=== PATIENT | female | born 1940 | race Caucasian/White ===

== ENCOUNTER 2016-06-23 11:46 | Observation (INO) | payer OTHER ==
[2016-06-23] MEDS ORDERED: Ketorolac INJ* 30 MG/ML 1 ML VIAL IV ONE (12:41)
[2016-06-23] MEDS ORDERED: NS 0.9% 1000 ML* 1,000 ML IV ONE (12:41)
[2016-06-23 13:06] LABS: Hematocrit 45 % (35-47); Hemoglobin 15.4 g/dl (12.0-16.0); Mean Corpuscular HGB Conc 34 g/dl (31-36); Mean Corpuscular Hemoglobin 31 pg (27-31); Mean Corpuscular Volume 91 fL (80-97); Mean Platelet Volume 8 um3 (7.4-10.4); Red Blood Count 4.99 10^6/ul (4.0-5.4); Red Cell Distribution Width 14 % (10.5-15); White Blood Count 7.1 10^3/ul (3.5-10.8)
[2016-06-23 13:22] LABS: BUN/Creatinine Ratio 16.7 (8-20); C Reactive Protein 1.47 mg/L (< 5.00); Calcium 9.3 mg/dL (8.6-10.3); EGFR African American 68.1 (>60); Globulin 3.5 g/dL (2-4); Potassium 3.3 mmol/L (3.5-5.0); Total Bilirubin 0.9 mg/dL (0.2-1.0); Total Protein 7.5 g/dL (6.4-8.9)
[2016-06-23] MEDS ORDERED: Morphine INJ* 4 MG/ML 1 ML SYRINGE IV ONE ×2 (13:37→15:27)
--- NOTE | 2016-06-23 13:44 | RAD ---
INDICATION: 2 days RIGHT flank pain. COMPARISON: No relevant prior exams available on the [facility] for comparison. TECHNIQUE: Multidetector CT images were obtained from the lung bases to the ischial tuberosities. Evaluation of the viscera is limited without IV contrast. Multiplanar reformation. REPORT: Mild prominence of interstitial markings at the basilar segments of the RIGHT greater than LEFT lower lobes without volume loss suspicious for mild interstitial edema or fibrosis. Coronary artery calcifications. Negative for cardiomegaly. Unremarkable unenhanced liver. Innumerable calcified gallstones without additional CT abnormality of the gallbladder. Negative for biliary dilatation. No stones visualized along the course of the nondilated common bile duct. Unremarkable unenhanced pancreas and spleen. Negative for CT abnormality of the upper GI or small bowel. The appendix is not visualized. Negative for inflammatory change at the RIGHT lower quadrant. Moderately severe colonic diverticulosis most prominent at the proximal sigmoid colon without findings of acute diverticulitis. Negative for ascites, free air, or significant hernias. Mild prominence of the bilateral adrenal limbs most consistent with hyperplasia. Subcentimeter cortical cyst mid pole LEFT kidney. No suspicious focal renal lesions, conspicuous stones, or hydronephrosis. Unremarkable nondilated ureters and largely decompressed urinary bladder. Subserosal solitary partially calcified versus conglomerate of multiple uterine fibroids along the RIGHT uterine margin measuring up to 5.1 x 4.7 cm in the axial plane. Unremarkable bilateral ovaries. Negative for lymphadenopathy. Atherosclerotic calcification of the abdominal aorta and iliac arteries. 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 Physiologic distention of the IVC. Negative for suspicious focal osseous lesions. Lumbar sacral spine degenerative spondylosis and facet joint osteoarthritis IMPRESSION: 1. Suggestion of mild interstitial edema versus interstitial fibrosis at the lung bases. 2. Coronary artery calcifications. 3. Cholelithiasis without additional CT abnormality of the gallbladder. Negative for biliary dilatation. 4. The appendix is not visualized. Moderately severe colonic diverticulosis without findings of acute diverticulitis. 5. Bilateral adrenal hyperplasia. 6. Negative for urolithiasis or hydronephrosis. 7. Subserosal solitary partially calcified versus conglomerate of multiple uterine fibroids along the RIGHT uterine margin measuring up to 5.1 x 4.7 cm in the axial plane. 8. 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
[2016-06-23] MEDS ORDERED: Potassium Chlor TAB* 20 MEQ TAB.ER PO ONE ×3 (15:03→16:52)
[2016-06-23 15:09] LABS: Urine Bilirubin Negative (Negative); Urine Glucose Negative (Negative); Urine Nitrite Negative (Negative)
[2016-06-23] MEDS ORDERED: Orphenadrine Citrate IV* 30 MG/ML 2 ML VIAL IV ONE (16:06)
[2016-06-23] MEDS ORDERED: Orphenadrine Citrate IV* 30 MG/ML 2 ML VIAL ONE (16:08)
[2016-06-23] MEDS ORDERED: Dexamethasone IV* 4 MG/ML 1 ML (4 MG) IV SLOW PU ONE (16:40)
[2016-06-23] MEDS ORDERED: Morphine INJ* 2 MG/ML 1 ML SYRINGE IV PRN (17:36)
[2016-06-23] MEDS ORDERED: Cyclobenzaprine TAB* 10 MG PO PRN (17:38)
[2016-06-23] MEDS ORDERED: Diazepam TAB(*) 5 MG PO PRN (17:38)
[2016-06-23] MEDS ORDERED: oxyCODONE TAB* 5 MG TAB PO PRN (17:39)
[2016-06-23] MEDS ORDERED: Enoxaparin(*) 40 MG/0.4 ML SYR SUBCUT SCH (18:00)
--- NOTE | 2016-06-23 18:01 | ED ---
Abbie Beltran Matthew, scribed for Kristopher Agarwal MD on 06/23/16 at 1244 . Abdominal Pain/Female - HPI Summary HPI Summary: A 76 y/o female presents to the ED with right flank pain since 2 days ago. The pain is rated 10/10 in severity and beginning to radiate down the right leg as well. The patient denies fever, chills, nausea, and vomiting. The patient went to on 06/21/16 and was diagnosed with an infection and possible kidney stone. No Hx of kidney stones. PMHx of HTN. SHx appendectomy. FHx of CAD, CA, Nathan' s disease. The patient recently drove from [place] to [facility]. - History of Current Complaint Chief Complaint: EDFlankPain Stated Complaint: FLANK PAIN Time Seen by Provider: 06/23/16 12:28 Hx Obtained From: Patient ?: No Onset/Duration: Lasting Days, Still Present Timing: Constant Severity Initially: Moderate Severity Currently: Moderate Pain Intensity: 10 Pain Scale Used: 0-10 Numeric Location: Flank - Rt Radiates: Yes Radiates to: Other - down the right leg Associated Signs and Symptoms: Negative: Fever, Nausea, Vomiting Allergies/Adverse Reactions: Allergies Allergy/AdvReac Type Severity Reaction Status Date / Time No Known Allergies Allergy Verified 06/23/16 11:46 Home Medications: Home Medications Aspirin [Aspirin 81 MG TAB] 81 mg PO DAILY 06/23/16 [History Confirmed 06/23/16] Atenolol TAB* [Tenormin TAB* 50 MG] 50 mg PO DAILY 06/23/16 [History Confirmed 06/23/16] Nabumetone TAB* [Relafen TAB*] 500 mg PO BID PRN 06/23/16 [History Confirmed ] Sulfamethox/Trimethoprim DS* [Bactrim DS 800/160 TAB*] 1 tab PO BID 06/23/16 [ History Confirmed 06/23/16] PMH/Surg Hx/FS Hx/Imm Hx Cardiovascular History: Reports: Hx Hypertension History: Denies: Hx Kidney Stones - Surgical History Surgery Procedure, Year, and Place: appendectomy Infectious Disease History: No Infectious Disease History: Denies: Traveled Outside the [place] in Last 30 Days - Family History Family History: FHx of CAD, CA, Nathan's disease - Social History Alcohol Use: Occasionally Hx Substance Use: No Substance Use Type: Reports: None Hx Tobacco Use: No Smoking Status (MU): Never Smoked Tobacco Review of Systems Constitutional: Negative Negative: Fever, Chills Eyes: Negative ENT: Negative Cardiovascular: Negative Respiratory: Negative Positive: Abdominal Pain - RT Flank Pain. Negative: Vomiting, Nausea Genitourinary: Negative Musculoskeletal: Negative Skin: Negative Neurological: Negative Psychological: Normal All Other Systems Reviewed And Are Negative: Yes Physical Exam - Summary Physical Exam Summary: VITAL SIGNS: Reviewed. GENERAL: Patient is an obese female who is lying comfortable in the stretcher. Patient is not in any acute respiratory distress. HEAD AND FACE: Normocephalic and atraumatic. EYES: PERRLA, EOMI x 2, No injected conjunctiva. EARS: Hearing grossly intact. Ear canals and tympanic membranes are WNL. MOUTH: Oropharynx within normal limits. NECK: Supple, trachea is midline, no adenopathy, no JVD. CHEST: Symmetric, no tenderness at palpation LUNGS: Clear to auscultation bilaterally. No wheezing or crackles. CVS: RRR,, S1 and S2 present, no murmurs or gallops appreciated. ABDOMEN: Soft, non-tender. No signs of distention. Positive bowel sounds. No rebound no guarding, and no masses palpated. No abdominal bruit or pulsations. Positive Right CVAT's EXTREMITIES: FROM in all major joints, no edema, no cyanosis or clubbing. NEURO: Alert and oriented x 3. No acute neurological deficits. Speech is normal. SKIN: Dry and warm Triage Information Reviewed: Yes Vital Signs On Initial Exam: Initial Vitals Temp Pulse Resp BP Pulse Ox 99 F 81 16 152/96 97 06/23/16 11:47 06/23/16 11:47 06/23/16 11:47 06/23/16 11:47 06/23/16 11:47 Vital Signs Reviewed: Yes Diagnostics - Vital Signs Vital Signs Temp Pulse Resp BP Pulse Ox 06/23/16 11:47 99 F 81 16 152/96 97 - Laboratory Lab Results: Lab Results 06/23/16 06/23/16 Range/Units 13:00 13:00 WBC 7.1 (3.5-10.8) 10^3/ul RBC 4.99 (4.0-5.4) 10^6/ul Hgb 15.4 (12.0-16.0) g/dl Hct 45 (35-47) % MCV 91 (80-97) fL MCH 31 (27-31) pg MCHC 34 (31-36) g/dl RDW 14 (10.5-15) % Plt Count 283 (150-450) 10^3/ul MPV 8 (7.4-10.4) um3 Neut % (Auto) 65.5 (38-83) % Lymph % (Auto) 21.9 L (25-47) % [place] % (Auto) 11.2 H (1-9) % Eos % (Auto) 0.8 (0-6) % Baso % (Auto) 0.6 (0-2) % Absolute Neuts (auto) 4.6 (1.5-7.7) 10^3/ul Absolute Lymphs (auto) 1.6 (1.0-4.8) 10^3/ul Absolute Monos (auto) 0.8 (0-0.8) 10^3/ul Absolute Eos (auto) 0.1 (0-0.6) 10^3/ul Absolute Basos (auto) 0 (0-0.2) 10^3/ul Absolute Nucleated RBC 0 10^3/ul Nucleated RBC % 0 Sodium 138 (133-145) mmol/L Potassium 3.3 L (3.5-5.0) mmol/L Chloride 107 (101-111) mmol/L Carbon Dioxide 21 L (22-32) mmol/L Anion Gap 10 (2-11) mmol/L BUN 17 (6-24) mg/dL Creatinine 1.02 H (0.51-0.95) mg/dL Est GFR ( Amer) 68.1 (>60) Est GFR (Non-Af Amer) 53.0 (>60) BUN/Creatinine Ratio 16.7 (8-20) Glucose 104 H (70-100) mg/dL Calcium 9.3 (8.6-10.3) mg/dL Total Bilirubin 0.90 (0.2-1.0) mg/dL AST 26 (13-39) U/L ALT 32 (7-52) U/L Alkaline Phosphatase 48 (34-104) U/L C-Reactive Protein 1.47 (< 5.00) mg/L Total Protein 7.5 (6.4-8.9) g/dL Albumin 4.0 (3.2-5.2) g/dL Globulin 3.5 (2-4) g/dL Albumin/Globulin Ratio 1.1 (1-3) Amylase 65 (29-103) U/L Lipase 32 (11.0-82.0) U/L Result Diagrams: 06/23/16 13:00 06/23/16 13:00 Lab Statement: Any lab studies that have been ordered have been reviewed, and results considered in the medical decision making process. - CT CT A/P CT Interpretation: Positive (See Comments) - IMPRESSION: 1. Suggestion of mild interstitial edema versus interstitial fibrosis at the lung bases. 2. Coronary artery calcifications. 3. Cholelithiasis without additional CT abnormality of the gallbladder. Negative for biliary dilatation. 4. The appendix is not visualized. Moderately severe colonic diverticulosis without findings of acute diverticulitis. 5. Bilateral adrenal hyperplasia. 6. Negative for urolithiasis or hydronephrosis. 7. Subserosal solitary partially calcified versus conglomerate of multiple uterine fibroids along the RIGHT uterine margin measuring up to 5.1 x 4.7 cm in the axial plane. 8. 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 CT Interpretation Completed By: Radiologist - EKG 13:19 Cardiac Rate: NL - 62 bpm EKG Rhythm: Sinus Rhythm EKG Interpretation: No ST elevation Abdominal Pain Fem Course/Dx - Course Course Of Treatment: A 76 y/o female presents to the ED with right flank pain since 2 days ago. The pain is rated 10/10 in severity and beginning to radiate down the right leg as well. The patient denies fever, chills, nausea, and vomiting. The patient went to on 06/21/16 and was diagnosed with an infection and possible kidney stone. No Hx of kidney stones. PMHx of HTN. SHx appendectomy. FHx of CAD, CA, Nathan's disease. The patient recently drove from [place] to [facility]. Blood work WNL expect potassium of 3.3, creatinine of 1.02 and glucose 104 . Urinalysis is negative. CT shows 1. Suggestion of mild interstitial edema versus interstitial fibrosis at the lung bases. 2. Coronary artery calcifications. 3. Cholelithiasis without additional CT abnormality of the gallbladder. Negative for biliary dilatation. 4. The appendix is not visualized. Moderately severe colonic diverticulosis without findings of acute diverticulitis. 5. Bilateral adrenal hyperplasia. 6. Negative for urolithiasis or hydronephrosis. 7. Subserosal solitary partially calcified versus conglomerate of multiple uterine fibroids along the RIGHT uterine margin measuring up to 5.1 x 4.7 cm in the axial plane. 8. 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 Discussed the CT with Dr. Francois and he reports that the AAAs are minimal and she only needs outpatient follow-up. I gave the patient Toradol, morphine, decadron, and Norflex. since I believe the pain is more musculoskeletal. She reported that she felt better, but when she tried to ambulate to use the restroom and was unable to secondary to increased pain. Therefore, at this time, I discussed my findings with Dr. [facility] who accepted the patient for admission. The patient will be observed and given pain medication for pain control. I dont know believe the pain is coming from the AAA, because it is very small and she doesnt have any other intraabdominal pathology. The patient is A&Ox3 and hemodynamically stable - Diagnoses Differential Diagnosis: Positive: Diverticulitis, Renal Colic, Urinary Tract Infection Provider Diagnoses: Right flank pain, Lower back pain, AAA (abdominal aortic aneurysm) - Provider Notifications Discussed Care Of Patient With: Dr. Gilmore (Radiologist) at 14:17 -- Consulted. Dr. [facility] (Hospitalist) at 16:48 -- Notified of paitent's history and will admit the patient into his care. Discharge - Discharge Plan Condition: Stable Disposition: ADMITTED TO [facility] Referrals: Non Staff,Doctor [Primary Care Provider] - The documentation as recorded by the Abbie sarmiento Matthew accurately reflects the service I personally performed and the decisions made by me, Kristopher Agarwal MD.
[2016-06-23] MEDS: Gabapentin CAP(*) 300 MG PO SCH ×2 (19:03→21:07)
[2016-06-23] MEDS: Lidocaine PATCH 5%* 1 PATCH TRANSDERM SCH (19:05)
[2016-06-23] MEDS ORDERED: Sulfamethox/Trimethoprim DS 800/160* TAB PO SCH (21:00)
[2016-06-23] MEDS ORDERED: Lidocaine Patch REMOVE* 1 NOTE MISC SCH (21:00)
[2016-06-23] MEDS: Acetaminophen TAB* 325 MG PO SCH (21:06)
--- NOTE | 2016-06-23 21:53 | HP ---
HISTORY AND PHYSICAL: DATE OF ADMISSION: 06/23/16 PRIMARY CARE PHYSICIAN: The patient's PCP is in [place]. CHIEF COMPLAINT: Low back pain. HISTORY OF PRESENT ILLNESS: Ms. Gatica is a 76-year-old female with past medical history of hypertension, arthritis, who presents to the hospital with worsening back pain. The patient states she has had some element of back pain for years, mostly located in the right lower back. She also needs to stop and sit down while ambulating due to the pain. She has seen her PCP at home for this recently and was prescribed nabumetone. She also reports having an MRI within the past few months that she states showed "arthritis." She states she was not ever told that she had any spinal stenosis. The patient and her have been driving cross country for the past week or so to visit their grandsons here in [place]; they live in [place]. She states that around Tuesday or Tuesday, the pain seemed to worsen. This was around the time they were in [place], [place]. She said over the past days, it has limited her mobility. She feels like she has a lot of trouble getting around. She states pain is located in the right mid back that radiates down the leg. Denies any incontinence. She was seen at urgent care recently and prescribed Bactrim, because it was felt that this may be a UTI or a kidney stone. She states they told her the urine possibly looked mildly infected. She had been complaining of some increased urinary frequency and maybe some mild dysuria. Denies any fever or chills. No hematuria. She presented to the emergency room due to these progressive symptoms. She received multiple rounds of IV narcotics , NSAIDs, muscle relaxants, and steroids in the emergency department, but continues to have significant pain. Hospitalist service was consulted for admission. PAST MEDICAL HISTORY: Hypertension, arthritis, chronic back pain. PAST SURGICAL HISTORY: Appendectomy, tonsillectomy, ankle surgery, recent colonoscopy with large polyp removal that was benign. HOME MEDICATIONS: 1. Atenolol 50 mg by mouth daily. 2. Bactrim double strength 1 tablet by mouth 2 times daily. 3. Nabumetone 1 tablet by mouth 2 times daily as needed for pain. 4. Aspirin 81 mg by mouth daily. ALLERGIES: The patient reports no known drug allergies. FAMILY HISTORY: Significant for father with CAD and CABG; mother, lung cancer; sister, kidney cancer. SOCIAL HISTORY: Denies any history of tobacco use. Very occasional alcohol use. Denies any illicit drug use. REVIEW OF SYSTEMS: A 12-point review of systems is negative except for that as noted in the HPI. PHYSICAL EXAMINATION GENERAL: The patient is an elderly female, lying in bed, in intermittent distress. VITAL SIGNS: On admission, temperature 99, heart rate of 81, respiratory rate 16, O2 saturation 97% on room air, blood pressure 152/96. HEENT: Head: Normocephalic, atraumatic. Eyes: Pupils equal, round, and reactive to light and accommodation. Anicteric sclerae. ENT: Moist mucous membranes. Normal oropharynx. No cervical adenopathy. LUNGS: Clear to auscultation bilaterally. No wheezes, rales, or rhonchi. CARDIOVASCULAR: Regular rate and rhythm. S1, S2 present. No murmurs, gallops , or rubs. ABDOMEN: Obese, soft, nondistended. Some mild tenderness to palpation in the right lower quadrant. EXTREMITIES: No cyanosis, clubbing, or edema. NEURO: The patient is alert and oriented x3. No focal neurological deficits. BACK: Tender to palpation in the right lumbar paraspinal area. Positive right straight leg raise test. SKIN: Warm, dry, and well perfused. DIAGNOSTIC STUDIES/LAB DATA: White blood cell count of 7.1, hematocrit of 45, platelets of 283. Sodium 138, potassium 3.3, chloride of 107, carbon dioxide 21 , BUN of 17, creatinine 1.02, glucose of 104. LFTs within normal limits. CRP of 1.47. Amylase is 65, lipase is 32. Urinalysis benign. CT abdomen and pelvis shows mild interstitial edema versus interstitial fibrosis at the lung bases, coronary artery calcification, cholelithiasis without additional CT abnormality of the gallbladder, negative for biliary dilatation, the appendix is not visualized, moderately severe colonic diverticulosis without findings of acute diverticulitis, bilateral adrenal hyperplasia, negative for urolithiasis or hydronephrosis, subserosal solitary partially calcified versus conglomerate of multiple uterine fibroids, borderline fusiform aneurysm of the infrarenal abdominal aorta. EKG: Personally reviewed shows normal sinus rhythm. No acute ischemic changes. ASSESSMENT AND PLAN: Intractable back pain in a 76-year-old female with past medical history of hypertension, arthritis, and chronic back pain. 1. Intractable back pain. It seems likely this may be an exacerbation of her arthritis or possibly spinal stenosis, probably exacerbated by her cross country car trip. The patient received a number of medications in the emergency department including Norflex, morphine, Toradol, and Decadron. We will hold off on any additional steroids for now. We will start the patient on [id number] Tylenol as well as gabapentin 300 mg 3 times daily. We will write the patient for a Lidoderm patch, Flexeril, and Valium p.r.n., oxycodone p.r.n. for pain. We will order PT eval. 2. Hypertension. Atenolol 50 mg by mouth daily. 3. Questionable UTI - reports she had mild symptoms and 5 star was not convinced about infection but treated due to back pain, UA clear now, will hold Bactrim 4. DVT prophylaxis. Lovenox subcu. 5. Code status. The patient is a full code. TIME SPENT: Total time spent on this admission 40 minutes with over half the time spent [id number] with the patient in counseling and coordinating care. [id number]/[facility] [place] #: [id number] TAYO
[2016-06-23] MEDS ORDERED: Aspirin EC Low Dose* 81 MG TAB.EC PO SCH (22:00)
[2016-06-23] MEDS ORDERED: Atenolol TAB* 50 MG PO SCH (22:00)
[2016-06-24 06:39] LABS: BUN/Creatinine Ratio 20.9 (8-20); Calcium 9.2 mg/dL (8.6-10.3); EGFR African American 77.7 (>60); EGFR Non-African American 60.4 (>60); Potassium 4.2 mmol/L (3.5-5.0)
[2016-06-24 07:32] VITALS: BP 119/90
[2016-06-24] MEDS: Lidocaine PATCH 5%* 1 PATCH TRANSDERM SCH (08:16)
[2016-06-24] MEDS: Gabapentin CAP(*) 300 MG PO SCH (08:17)
[2016-06-24] MEDS: Acetaminophen TAB* 325 MG PO SCH (08:18)
--- NOTE | 2016-06-28 07:42 | PN ---
Hospitalist Progress Note . HOSPITALIST DISCHARGE NOTE: See dc instructions and summary by me. Patient stable for dc dc instructions reviewed with the patient at the bedside. DC patient home today.
--- NOTE | 2016-06-28 11:25 | DS ---
DISCHARGE SUMMARY: DATE OF ADMISSION: 06/23/16 DATE OF DISCHARGE: 06/24/16 STATUS DURING HOSPITALIZATION: Observation. PRIMARY CARE PHYSICIAN: In [place]. PRINCIPAL DISCHARGE DIAGNOSIS: Low back strain secondary to transcontinental car ride - driving [facility] to [place]. SECONDARY DIAGNOSES: 1. Obesity. 2. Hypertension. 3. Arthritis. 4. Chronic back pain. 5. History of appendectomy. 6. Tonsillectomy. 7. Ankle surgery. 8. Recent colonoscopy with large polyp removal - benign. DISCHARGE MEDICATION REGIMEN: 1. Prescribed: Cyclobenzaprine 10 mg by mouth 3 times daily as needed. 2. Prescribed: Oxycodone/acetaminophen 5/325 mg tabs 2 tabs every 4 hours as needed, to receive 8 doses per day. 3. Tylenol 975 mg by mouth 3 times daily (when not taking Percocet). 4. Relafen 500 mg by mouth twice daily as needed. 5. Atenolol 50 mg by mouth every day. 6. Aspirin 81 mg by mouth daily. 7. Bactrim 1 tab twice daily for UTI as previously prescribed - can likely stop. HISTORY OF PRESENT ILLNESS AND HOSPITAL COURSE: Please see the H and P by Dr. Misha Brewer on . In brief, Ms. Gatica is a 76-year-old female with a past medical history of hypertension, a rthritis as above, who came to the hospital with worsening back pain. This has been going on for ye ars, mostly in her right lower back. She needs to stop and sit down when ambulating secondary to th e pain. The patient was recently prescribed nabumetone. The patient had an MRI within the past few months, which showed just arthritis. No disk disease or spinal cord involvement. She was never halle d she has spinal stenosis. More recently, the patient and her have been driving [place] for the past week to visit their grandsons in [place] and they live in [place]. Around Tuesday or Tuesday, the pain seemed to worsen. They were in [place], [place], when it crescendoed. This limited her mobility. Finally, the patient came to the hospital when she could not walk anymo re. This was secondary to local pain. She had multiple rounds of IV narcotics, NSAIDs, and muscle relaxants as well as steroids in the emergency room, but continues to have significant pain and so t he hospitalist service was consulted for admission and she was placed on observation status. Overni t, she did well. She was seen by PT and cleared for discharge. She is prescribed Percocet and ask ed to walk and not sit for very long periods of time. The patient was counseled carefully not to dr cantu while taking either Flexeril or Percocet. I counseled her not to drive within 6 hours of taking Percocet and not within 12 hours of taking Flexeril, and she said she would comply with this instru ction. We had a long conversation about this and the patient was also counseled to lose weight as h er BMI of 45 is likely also contributing to her back pain. TIME SPENT: Total time taken to discharge Ms. Gatica was 40 minutes, greater than half that time s pent going over the discharge instructions [id number] with the patient. CONDITION AT DISCHARGE: Stable. [id number]/[facility] #: [id number]
== END 2016-06-24 12:20 | disposition home or self-care (01) ==
LOC: ED 11:46 → MED 16:58
PROVIDERS: ADMIT Hospitalist; ATTEND Internal Medicine
DX: M54.5 Low back pain (principal); G89.29 Other chronic pain; I10 Essential (primary) hypertension; M19.90 Unspecified osteoarthritis, unspecified site; K80.20 Calculus of gallbladder without cholecystitis without obstruction; K57.90 Diverticulosis of intestine, part unspecified, without perforation or abscess without bleeding; Z79.82 Long term (current) use of aspirin; Z79.899 Other long term (current) drug therapy
CPT/HCPCS: 36415; 74176; 80048; 80053; 81003; 82150; 83690; 85025; 86140; 93005; 96361; 96372; 96374; 96375; 96376; 99284; A9270-GY; G0378; J1100; J1650; J1885; J2270; J2360